=== PATIENT | female | born 1980 | race African-American/Black ===

== ENCOUNTER 2018-11-15 10:59 | Emergency (ER) | payer MEDICAID ==
[~2018-11-15] VITALS: Ht 154.9 cm; Wt 61.8 kg
[~2018-11-15 10:59] MED LIST: NOCURR
[2018-11-15 11:28] VITALS: BP 115/67
[2018-11-15] MEDS ORDERED: KETOROLAC TROMETHAMINE 30 MG/ML VIAL IVP ONE (11:30)
[2018-11-15 11:43] LABS: BASOPHILS % (AUTO) 1.1 % (0.0-2.0); EOSINOPHILS % (AUTO) 2.6 % (1.0-6.0); HEMATOCRIT 42.2 % (36-46); HEMOGLOBIN 14.2 g/dL (12.0-16.0); LYMPHOCYTES % (AUTO) 23.8 % (22.0-44.0); MEAN CORPUSCULAR HEMOGLOBIN 31.2 pg (26.0-34.0); MEAN CORPUSCULAR HGB CONC 33.6 G/dL (31.0-37.0); MEAN CORPUSCULAR VOLUME 93 fL (80-100); MONOCYTES # (AUTO) 0.3 K/uL (0.1-1.0); MONOCYTES % (AUTO) 3.6 % (2.0-9.0); NEUTROPHILS # (AUTO) 5.9 K/uL (1.8-7.7); NEUTROPHILS % (AUTO) 68.9 % (40.0-70.0); PLATELET COUNT (AUTO) 275 K/uL (150-450); RED BLOOD CELL COUNT(AUTO) 4.55 MIL/uL (4.00-5.20); RED CELL DISTRIBUTION WIDTH 13.4 % (11.5-14.5)
[2018-11-15 12:07] LABS: ANION GAP 8 mmol/L (8-16); CARBON DIOXIDE 26 mmol/L (22-29); CHLORIDE 102 mmol/L (98-107); CREATININE 0.49 mg/dL (0.60-1.30); GLOMERULAR FILTR. RATE CALC > 60 mL/min (>60); GLUCOSE,RANDOM 87 mg/dL (70-110); SODIUM SERUM 136 mmol/L (136-145); UREA NITROGEN, BLOOD 8 mg/dL (7-18)
[2018-11-15 12:17] LABS: ALANINE AMINOTRANSFERASE 18 U/L (12-78); ALBUMIN 3.5 g/dL (3.4-5.0); ALKALINE PHOSPHATASE 46 U/L (46-116); ASPARTATE AMINOTRANSFERASE 21 U/L (15-37); BILIRUBIN,TOTAL 0.2 mg/dL (0.1-1.0); HCG,QUANTITATIVE 1 mIU/mL (0-6)
== END 2018-11-15 13:14 | disposition home or self-care (01) ==
LOC: EMS 11:00
DX: R09.1 Pleurisy (principal); R06.02 Shortness of breath; R07.81 Pleurodynia; F17.210 Nicotine dependence, cigarettes, uncomplicated
CPT/HCPCS: 36415; 71045; 80053; 84484; 84702; 85025; 85379; 93005; 96374; 99285; 99406; J1885

== ENCOUNTER 2019-02-20 03:16 | Emergency (ER) | payer SELFPAY ==
[~2019-02-20] VITALS: Ht 180.3 cm; Wt 59.1 kg
[2019-02-20] MEDS ORDERED: LORazepam 1 MG TABLET PO ONE (04:00)
[2019-02-20 05:30] VITALS: BP 118/65
== END 2019-02-20 05:34 | disposition home or self-care (01) ==
LOC: EMS 03:19
DX: F41.9 Anxiety disorder, unspecified (principal); R00.2 Palpitations; F17.210 Nicotine dependence, cigarettes, uncomplicated; F12.90 Cannabis use, unspecified, uncomplicated
CPT/HCPCS: 93005

== ENCOUNTER 2021-08-06 04:03 | Emergency (ER) | payer MEDICAID ==
[~2021-08-06] VITALS: Ht 154.9 cm; Wt 54.0 kg
[2021-08-06 04:11] VITALS: BP 148/73
== END 2021-08-06 05:30 | disposition left against medical advice (07) ==
LOC: EMS 04:05
DX: S50.35 Superficial foreign body of elbow (principal); Z53.21 Procedure and treatment not carried out due to patient leaving prior to being seen by health care provider; X58.XXXA Exposure to other specified factors, initial encounter; Y93.89 Activity, other specified; Y92.89 Other specified places as the place of occurrence of the external cause; Y99.8 Other external cause status

== ENCOUNTER 2023-07-28 16:37 | Emergency (ER) | payer MEDICAID ==
[~2023-07-28] VITALS: Ht 160 cm; Wt 61.4 kg
[2023-07-28] MEDS ORDERED: TraMADol HCL 50 MG TABLET PO ONE (21:30)
[2023-07-28] MEDS ORDERED: CEPHALEXIN MONOHYDRATE 500 MG CAPSULE PO ONE (21:30)
[2023-07-28] MEDS ORDERED: SULFAMETHOX/TRIMETH DS 800-160 MG/TABLET PO ONE (21:45)
[2023-07-28] MEDS ORDERED: BACTDSB PO (21:57)
[2023-07-28] MEDS ORDERED: CEPH-558 PO (21:57)
[2023-07-28 22:39] VITALS: BP 121/71; PULSE 81; RESP 18; TEMP 97.3
== END 2023-07-28 22:55 | disposition home or self-care (01) ==
LOC: EMS 16:39
DX: L03.311 Cellulitis of abdominal wall (principal); F17.210 Nicotine dependence, cigarettes, uncomplicated; F12.90 Cannabis use, unspecified, uncomplicated
CPT/HCPCS: 10060; 99284; Z7502; Z7610

== ENCOUNTER 2024-10-10 03:16 | Emergency (ER) | payer MEDICAID, OTHER ==
[~2024-10-10] VITALS: Ht 154.9 cm; Wt 56.8 kg
[~2024-10-10 03:16] MED LIST changes: +BACTDSB PO; +CEPH-558 PO
[2024-10-10 05:01] VITALS: BP 125/60; PULSE 95; RESP 12; O2SAT 98
[2024-10-10] MEDS: CETIRIZINE HCL 10 MG TABLET PO ONE (05:24)
[2024-10-10] MEDS: FAMOTIDINE 20 MG TABLET PO ONE (05:25)
[2024-10-10] MEDS: PredniSONE 20 MG TABLET PO ONE (05:25)
[2024-10-10] MEDS ORDERED: FAMO20 PO (05:32)
[2024-10-10] MEDS ORDERED: CETI-450 PO (05:32)
== END 2024-10-10 06:29 | disposition home or self-care (01) ==
LOC: EMS 03:18
DX: T78.40XA Allergy, unspecified, initial encounter (principal); F12.90 Cannabis use, unspecified, uncomplicated; R21 Rash and other nonspecific skin eruption; F17.210 Nicotine dependence, cigarettes, uncomplicated
CPT/HCPCS: 99284; J7512